=== PATIENT | female | born 1930 | race African-American/Black ===

== ENCOUNTER 2016-09-20 13:25 | Inpatient (IN) | payer MEDICARE ==
--- NOTE | ~2016-09-20 | DS ---
Discharge Summary [facility] [address] [place]. [address] NAME: LCARICE BRUCE : 28 STATUS : DIS IN PAT#: [id number] AGE: 86 ADM/REG DATE : 09/22/16 MR#: [id number] REPORT SERV DATE: 10/08/16 DICTATED BY: CORRY ALANIZ DATE: 10/07/16 REPORT STATUS : Draft TRANSCRIBED BY: RASHIDA DATE: 10/07/16 Data Collection from hospitalization DISCHARGE DIAGNOSES: 1. Acute on chronic hypercapnia. 2. Hypoxemic respiratory failure. 3. Untreated obstructive sleep apnea. 4. Restrictive lung disease/paralyzed left hemidiaphragm. 5. End-stage renal disease, on hemodialysis. 6. Vascular dementia. 7. Type 2 diabetes. 8. History of cerebrovascular accident with residual weakness. 9. Obesity hypoventilation syndrome. 10.Chronic obstructive pulmonary disease. CONSULTATIONS: 1. Karsten Saldana PA-C. 2. Luca Pond MD. 3. EVA Vital. PROCEDURES PERFORMED: 1. CT scan of the brain without contrast on 09/20/2016. 2. MRI of the brain without contrast on 09/22/2016. 3. Venous Doppler ultrasound of the left upper extremity on 09/27/2016. 4. Electroencephalogram on 09/23/2016. MEDICATIONS: DuoNeb inhaled solution as instructed, Eliquis 2.5 mg twice a day, Lumigan one drop daily as instructed, Tums one tablet daily, Sensipar 60 mg at bedtime, docusate sodium 100 mg daily, Cosopt one drop twice a day, Nexium 40 mg daily, Generlac 30 mL daily, Claritin 10 mg daily as needed, melatonin 3 mg at bedtime, Reglan 2.5 mg before meals and at bedtime, Provigil 100 mg daily, Nephrocaps one capsule daily, fish oil 2000 mg daily, MiraLAX powder one packet daily, Pravachol 80 mg at bedtime, Exelon 9.5 mg topically daily, Phoslyra 10 mL three times a day. CONDITION AT DISCHARGE: Stable. DISPOSITION: The patient was discharged home on a mechanical soft diet with activities as instructed. She would follow up with me as instructed. HOSPITAL COURSE: This is an 86-year-old female who is a [facility] participant. She was sent to the emergency room from dialysis. Her family reported that she had been lethargic over the past couple of days, sleeping more than usual and her speech has been a little slurred. She seemed to find it hard to find words to communicate. She had only about 45 minutes of dialysis on the day prior to this admission since they noticed the increased lethargy and sleepiness and sent her to the emergency room. She does have obstructive sleep apnea and is noncompliant with her CPAP. Her family reports that she had been more sleepy over the past few weeks, but not to the point that she had been over the past two days. She would usually wake up and respond when they would try to wake her up and she was able to hold the glass Discharge Summary [address] [place]. [address] NAME: CLARICE BRUCE : 29 STATUS : DIS IN PAT#: [id number] AGE: 86 ADM/REG DATE : 09/22/16 MR#: [id number] REPORT SERV DATE: 10/08/16 DICTATED BY: CORRY ALANIZ DATE: 10/07/16 REPORT STATUS : Draft TRANSCRIBED BY: RASHIDA DATE: 10/07/16 and drink from it, which she has not been able to do for the past two days. She also did not seem to be understanding very well when they would ask her to do things. She has no history of chest pain, nausea, vomiting, or abdominal pain. She has been having regular dialysis and had not missed any dialysis other than the one on the day prior to this admission. She was admitted to the hospital at this time for further evaluation and treatment. Upon admission, her troponin was 0.05. Chest x-ray revealed stable chest with severe right hilar enlargement, likely vascular with central venous congestion, bibasilar atelectasis, decreased lung volumes, and severe elevation of the left hemidiaphragm. A CT scan of the brain without contrast did not reveal any acute cardiovascular event. ABG was going to be checked. Magnesium supplementation was going to be provided. She was seen by Dr. Luca Pond regarding the encephalopathy. Her CT scan of the brain had shown generalized atrophy. She was noted to have encephalomalacia in the left parietal area concerning for previous stroke. She had complained of some recent abdominal discomfort, but did not appear to have persistent abdominal complaints. Serum ammonia, procalcitonin, vitamin B12, thiamine, and folate level were going to be checked as well as serum TSH and free T4. An MRI of the brain without contrast was requested. Ativan would be given prior to the MRI. On 09/22/2016, MRI of the brain without contrast was performed and this revealed moderate advanced diffuse cerebral involutional changes and moderate deep white matter chronic microvascular ischemic change. No acute CVA or acute intracranial pathology was seen. Chronic mucous retention cysts were seen at the floor of both maxillary sinuses. A swallow study was going to be performed. IV thiamine was started. EEG was requested. She had been seen by Deborah Cintron. She had 1+ edema. Creatinine level was 6.38. Hemodialysis therapy would be performed the following day. She was very sleepy likely secondary to the Ativan that she received prior to the MRI. Her MRI had been negative for acute stroke. On 09/23/2016, her T-max was 99. She had no new complaints. The patient has had a gradual decline over the past four to six months. Electroencephalogram was performed. The EEG was considered abnormal mildly secondary to the presence of generalized slowing, but otherwise, no electrographic seizure was captured. Clinical twitching was noted without corresponding electrographic changes concerning for possible myoclonus. No focal abnormality or seizure discharge was otherwise noted during the EEG evaluation. We were going to consider low-dose Keppra. Hemodialysis therapy was performed. On 09/24/2016, the patient's chest x-ray showed continued bilateral perihilar and basilar atelectasis. There was increased atelectasis versus consolidation in the right perihilar region. A dose of IV vancomycin was given. Her prognosis was guarded. Speech/Language pathology attempted to evaluate the patient, but she was too lethargic to safely consume anything by mouth. She was seen by Karsten Saldana regarding altered mental status and a patient with hypercapnic respiratory failure. Currently, she was essentially aphasic and unable to speak coherently. She had a wet cough. The patient's daughter said that she had worsening swallow function lately. Her oxygenation status at home had been stable. There had been no report of chest pain or significant past cardiac history. Creatinine level was 5.21. At this point in time, BiPAP therapy was going to be initiated for her hypercapnia. ABGs were going to be checked. If she were to require continuous BiPAP, she would be moved to the IMCU for closer monitoring. She is a limited code and did not want intubation. It was felt that she would likely qualify for noninvasive positive pressure ventilation at Discharge Summary [place] [id number] [place]. [address] NAME: CLARICE BRUCE : 29 STATUS : DIS IN PAT#: [id number] AGE: 86 ADM/REG DATE : 09/22/16 MR#: [id number] REPORT SERV DATE: 10/08/16 DICTATED BY: CORRY ALANIZ DATE: 10/07/16 REPORT STATUS : Draft TRANSCRIBED BY: RASHIDA DATE: 10/07/16 discharge. It was felt that she would likely need a modified barium swallow study once she was more alert. Nebulized medications would be provided with EzPAP. It was felt that she would likely qualify for noninvasive positive pressure ventilation at discharge. The next day, she had a few rhonchi in her lungs. The patient had been made a DNR/DNI on the chart. Lovenox was continued. On 09/26/2016, she was in no acute distress. She did seem more alert. Creatinine level was 5.23. Over the next couple of days, she was able to answer simple questions, was able to tolerate a pureed diet. Provigil was continued. She remained on oxygen. Keppra was stopped. Levothyroxine was going to be discontinued. She had some swelling in the left arm. Venous Doppler ultrasound of the left upper extremity was performed and was negative. Discharge planning was performed. Speech/Language pathology performed a swallow study. They recommended a mechanical soft diet with ground meat with gravy and thin liquids. She was evaluated by Physical Therapy. On 09/28/2016, hemodialysis therapy was performed. Discharge instructions were given. She was changed to oral Eliquis. Due to her improved and stable condition, she was discharged home with the above-stated instructions. Information collected by: Love Ruby I submit the above information as my discharge summary. KELBY/RASHIDA Corry Alaniz M.D. / [id number] CC: Vipin Rowe M.D. Jessica Craig, [facility] Luca Pond MD
--- NOTE | ~2016-09-20 | EEG ---
Electroencephalogram [place] [address] [place]. [address] NAME: CLARICE BRUCE : 28 STATUS : ADM IN PAT#: [id number] AGE: 86 ADM/REG DATE : 09/22/16 MR#: [id number] REPORT SERV DATE: 09/23/16 DICTATED BY: DATE: REPORT STATUS : Draft TRANSCRIBED BY: MODL DATE: 09/23/16 NEUROLOGY EEG REPORT CLINICAL INDICATION: Encephalopathy. DESCRIPTION: This EEG was performed using 10/20 electrode placement system. During the EEG study, symmetric background activity was noted with predominant occipital with mild generalized slowing, predominant occipital rhythm of 7-8 hertz. Photic stimulation was performed. No clear driving response was seen. Hyperventilation was not performed secondary to the patient's underlying medical condition. During the EEG study, the patient achieved drowsy state. The patient does have some twitching captured during the EEG study, without corresponding electrographic changes or electrographic seizures. No focal abnormalities, seizure activities were otherwise noted during the EEG study. INTERPRETATION: This EEG study obtained during awake and drowsy state may be considered mildly abnormal secondary to presence of generalized slowing, but otherwise no electrographic seizure was captured. Clinical twitching was noted without corresponding electrographic changes concerning for possible myoclonus. No focal abnormality or seizure discharge was otherwise noted during the EEG evaluation. Clinical correlation is recommended. [facility]/RASHIDA Luca Pond MD / [id number] CC: Vipin Rowe M.D.
--- NOTE | ~2016-09-20 | CN ---
Consultation Report [facility] [address] [place]. [address] NAME: CLARICE BRUCE : 28 STATUS : ADM Elly PAT#: [id number] AGE: 86 ADM/REG DATE : 09/20/16 MR#: [id number] REPORT SERV DATE: 09/21/16 DICTATED BY: DATE: REPORT STATUS : Draft TRANSCRIBED BY: MODL DATE: 09/21/16 NEUROLOGY CONSULTATION DATE OF CONSULTATION: 09/21/2016 REASON FOR CONSULT: Encephalopathy. HISTORY OF PRESENT ILLNESS: This is an 86-year-old female who presented to [facility] on 09/20/2016, secondary to encephalopathy with the patient noted to be more lethargic, sleeping, difficult to arouse, and at times will wake up. The patient's family reports the patient normally does have a tendency to fall asleep but not quite as bad when symptoms have been ongoing for the past [id number] days. The patient does have some complaints of abdominal discomfort roughly two to three days ago but does not appear to have persistent discomfort after provided with MiraLAX and senna at night and the patient had a bowel movement. The patient was noted to be awake at the time of evaluation, but was noted to be asleep when the patient's family arrived this morning. The patient's family otherwise denies any recent illness, fever, chills, nausea, vomiting, chest pain, or shortness of breath. The patient does have a history of previous stroke with residual right-sided hemiparesis, at baseline does not ambulate and the patient was noted to have difficulty talking at baseline although the patient's language difficulty as well as swallowing problem seems to be worse over the past four-to-six months according to family members. No other significant illness was reported. The patient was started on melatonin roughly 4 to 5 days ago but has only taken 2 days and night and has not been taking any melatonin recently. No other recent changes in medication was noted. The patient's family denies any recent similar events in the past. The patient does have difficulties with memories that appeared to be stable and was noted to have stable respiratory and home oxygen requirement over the past several years. PAST MEDICAL HISTORY: The patient's past medical history is significant for history of previous stroke with residual right-sided weakness as well as aphasia with the patient at baseline still able to communicate some with the family members but seems to have recent worsening of language difficulties. In addition, the patient was also noted to have recent worsening swallowing difficulties. The patient was also noted to have a history of dementia with history of end-stage renal disease, on hemodialysis. 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 The patient baseline is nonambulatory, wheelchair- bound secondary to stroke and weakness. 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 The patient also has had a history of recurrent small bowel obstruction in the past. SOCIAL HISTORY: The patient's family is involved in her care. No current tobacco, alcohol, or recreational drug usage. History of previous tobacco usage in the past. Consultation Report [place] [id number] [facility] [place]. [address] NAME: CLARICE BRUCE : 28 STATUS : ADM Elly PAT#: [id number] AGE: 86 ADM/REG DATE : 09/20/16 MR#: [id number] REPORT SERV DATE: 09/21/16 DICTATED BY: DATE: REPORT STATUS : Draft TRANSCRIBED BY: MODL DATE: 09/21/16 FAMILY HISTORY: Family history is significant for hypertension and diabetes otherwise. ALLERGIES: THE PATIENT WAS NOTED TO HAVE ALLERGY TO LISINOPRIL. SEDATING MEDICATION WAS AVOIDED AT BASELINE. THE PATIENT WAS NOT NOTED TO HAVE ANY BETA FRANCINE USAGE SECONDARY TO BASELINE BRADYCARDIA. REVIEW OF SYSTEMS: Unable to be obtained from the patient, but otherwise, negative according to family members. MEDICATIONS: The patient's home medication consist of Eliquis, Lumigan, calcium carbonate, Sensipar, docusate, Cosopt, Nexium, Neurontin, lactulose, Claritin, melatonin which the patient has not been taking, as well as Reglan, Nephro vitamins, fish oil, MiraLAX, pravastatin, and Exelon patch. PHYSICAL EXAMINATION: VITAL SIGNS: At the time of evaluation, the patient was noted to have vital signs with T- max of 98.1, heart rate of 32 to 67, respirations of 15 to 20, and blood pressure of 90 to 124 over 54 to 64. GENERAL: The patient is well developed, well nourished, in no acute distress. CARDIOVASCULAR: Regular rate and rhythm. No carotid bruits were otherwise auscultated. PULMONARY: Examination was clear to auscultation bilaterally. The patient was breathing through nasal cannula at the time of evaluation. NEUROLOGICAL EXAMINATION: The patient is alert although having difficulty answering orientation question; was noted to have verbal perseverance at the time of evaluation. Dysarthria was noted and not always answering questions appropriately. At the time of evaluation, is unable to answer orientation question and registration and recall was unable to be performed. The patient was noted to follow some simple commands but not consistently. Cranial nerves II to XII, pupils equal, round, and reactive to light with the patient noted to have horizontal eye movement. Scmed-tj-[id number] response was otherwise noted with the patient noted to have decreased nasolabial fold on the right, but otherwise, appeared to have perception of noxious stimulation in bilateral face. The patient does have retained coughing mechanism. At the time of evaluation, the patient was noted to have decreased hearing in bilateral ears. The patient does demonstrate decreased range of motion in the left upper extremity which according to the family has been chronic. The patient demonstrated roughly 2 to 3/5 left upper extremity supervisor byproducts strength as well as 1 to 2/5 right upper extremity strength with the patient demonstrated 1/5 bilateral lower extremity strength which according to family again has been chronic. The patient does demonstrate 3+ reflex in the right upper extremity and right lower extremity as well as 2+ reflex in the left upper and left lower extremity. The patient demonstrated upgoing toe on bilateral plantar reflexes. Cerebellar examination was unable to be evaluated secondary to limitation of motion in the bilateral upper extremities. Gait was not evaluated. At baseline, the patient is wheelchair bound. LABORATORY STUDIES: The patient's laboratory studies demonstrated sodium 137, potassium 4.4, chloride 103, bicarb 28, BUN of 39, creatinine of 5.35, glucose of 106, calcium of 8.6, with Consultation Report [address] [address] NAME: CLARICE BRUCE : 28 STATUS : ADM Elly PAT#: [id number] AGE: 86 ADM/REG DATE : 09/20/16 MR#: [id number] REPORT SERV DATE: 09/21/16 DICTATED BY: DATE: REPORT STATUS : Draft TRANSCRIBED BY: MODL DATE: 09/21/16 the patient noted to have white blood cell count of 5.9, hemoglobin of 11.8, hematocrit of 37.1, and platelet count of 153. CT scan of the brain, generalized atrophy was seen. The patient, in addition, was noted to have encephalomalacia in the left parietal area concerning for previous stroke. IMPRESSION: 1. Encephalopathy with waxing and waning mentation as well as level of consciousness with the patient at times more lethargic but now, at the time of evaluation, is awake. The patient was also noted to have progressive worsening language as well as swallowing difficulty for the past four-to-six months and recently appeared to be more lethargic over the past [id number]-se-egkyp days. The patient, in addition, has complained of recent abdominal discomfort and also does not appear to have persistent abdominal complaints. Concern for possible worsening baseline dementia versus stroke versus toxic metabolic etiology. We will check laboratory studies including serum ammonia, procalcitonin, vitamin B12, thiamine, and folate level as well as serum TSH and free T4 with morning labs. We will check MRI of the brain without contrast. As the patient was severely claustrophobic, we will provide the patient with very low dose of Ativan 0.25 mg IV x1, thirty minutes prior to MRI study, may repeat once if needed. We will also obtain swallow study given family is concerned about worsening swallowing difficulties for diagnostic study or recommendation pending the patient's MRI as well as laboratory study results. RECOMMENDATIONS: 1. MRI of the brain without contrast. 2. Ammonia, TSH, free T4, vitamin B12, folate, procalcitonin, thiamine level with morning labs. 3. Speech therapy for swallow study. 4. Ativan 0.25 mg IV x1, thirty minutes prior to MRI, may repeat once if needed. [facility]/MODL Luca Pond MD / [id number] CC: Vipin Rowe M.D.
--- NOTE | ~2016-09-20 | HP ---
History And Physical [place] [address] [facility] [place]. [address] NAME: CLARICE BRUCE : 29 STATUS : ADM Elly PAT#: [id number] AGE: 86 ADM/REG DATE : 09/20/16 MR#: [id number] REPORT SERV DATE: 09/21/16 DICTATED BY: WILLY HE DATE: 09/21/16 REPORT STATUS : Draft TRANSCRIBED BY: MODL DATE: 09/21/16 DATE OF ADMISSION: 09/20/2016 CHIEF COMPLAINT: Altered mental status, lethargy. HISTORY OF PRESENT ILLNESS: This is an 86-year-old female, who is a [facility] participant. She was sent to the emergency room from dialysis yesterday. Family reports that, she has been lethargic for the past two days, sleeping more than usual and her speech was a little slurred and she seemed to be finding it hard to find words to communicate. The patient had only about 45 minutes of dialysis yesterday since they noticed increased lethargy and sleepiness and sent her to the emergency room for further evaluation. She does have obstructive sleep apnea and is noncompliant with her CPAP. The family reports that she has been more sleepy for the last few weeks, but not to the point as she has been in the last two days. She would usually wake up and respond when they try to wake her up and was able to hold a glass and drink from it, which she has not been able to do for the past two days. She also does not seem to be understanding very well when they try to ask her to do things. She has no history of chest pain, nausea, vomiting, abdominal pain. No history of shortness of breath reported. No history of increased edema. She has been having regular dialysis and had not missed any dialysis other than the one yesterday. PAST MEDICAL HISTORY: She has a history of end-stage renal disease, on hemodialysis, vascular dementia, history of cerebrovascular disease with prior strokes and residual right- sided hemiparesis and aphasia. She also has a history of recurrent DVTs and pulmonary embolism, and is currently on anticoagulation for the same. 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 She has a history of hypercapnic respiratory arrest, for which she had been on a ventilator in the past. She also has obstructive sleep apnea and obesity hypoventilation syndrome. 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 She has also had multiple hospitalizations in the past for small bowel obstruction, which had been managed conservatively. FAMILY HISTORY: Noncontributory. SOCIAL HISTORY: The patient has a daughter who is very involved in her care, but lives with a friend who is presently in the room and able to give a detailed history. ALLERGIES: INCLUDES LISINOPRIL. WE ALSO AVOIDED GIVING HER SEDATING MEDICATIONS DUE TO HER DEVELOPING HYPOXIA AND ALSO BETA-BLOCKERS DUE TO BRADYCARDIA. MEDICATIONS: Current medication list, please see the medication reconciliation orders for details, but in brief, the patient is on Eliquis 5 mg twice a day, Lumigan eye drops, calcium carbonate, Sensipar tablet at bedtime, Colace, Cosopt eye drops, Nexium, gabapentin, lactulose, loratadine, melatonin which had been recently started, Reglan, Nephrocaps, fish oil, MiraLAX, pravastatin, Exelon patch, Phoslyra. REVIEW OF SYSTEMS: A 10-point review of systems was performed and was negative except as mentioned above. History And Physical [address] [address] NAME: CLARICE BRUCE : 29 STATUS : ADM Elly PAT#: [id number] AGE: 86 ADM/REG DATE : 09/20/16 MR#: [id number] REPORT SERV DATE: 09/21/16 DICTATED BY: WILLY HE DATE: 09/21/16 REPORT STATUS : Draft TRANSCRIBED BY: RASHIDA DATE: 09/21/16 PHYSICAL EXAMINATION: GENERAL: The patient has her eyes open at the time of exam, but is drowsy, and seems to not understand commands as well as she usually does. She is drowsy and is falling asleep during the conversation, but is arousable. She does not seem to be in any acute distress. HEENT: Normocephalic, atraumatic. No icterus noted. No pallor. NECK: Supple. There is no jugular venous distention. CHEST: Not tender to palpation. Breath sounds were decreased at the bases. Exam was restricted as the patient was not taking deep breaths, but I did not hear any wheezing or crackles. CARDIOVASCULAR: Regular rate and rhythm. 2/6 systolic ejection murmur present. ABDOMEN: Soft, nontender, nondistended. Active bowel sounds were present. NEURO: She is not as alert as she usually is, drowsy, but arousable. Not following commands very well. Strength is decreased in all her extremities and as per family, she is not moving her upper extremities as well as she usually does. The patient is left transfer at baseline and does not transfer independently and is usually either in the bed or in the wheelchair. SKIN: Did not reveal any breakdown. LABORATORIES: Sodium 137, potassium 4.4, chloride was 103, BUN 39, creatinine 5.34, glucose 106, calcium 8.6, magnesium was 1.5. Hemoglobin 5.9, hematocrit 37.1, platelets 153. INR was 1.5. Troponin 0.05. Chest x-ray reveals stable chest with severe right hilar enlargement likely vascular with central venous congestion, bibasilar atelectasis, decreased lung volumes, and severe elevation of the left hemidiaphragm. CT scan of the brain did not reveal any acute cardiovascular event. She did have some stable old CVAs. ASSESSMENT AND PLAN: 1. Altered mental status, increased lethargy, unclear cause, could be toxic metabolic encephalopathy versus cerebrovascular accident, which has not been picked up on the CT scan versus a respiratory cause versus generalized decline. We will get a Neurology consult and possibly an MRI. We will also check an ABG. The patient is going to get dialysis today and that should help. I have also discussed the fact that the patient seems to be declining gradually and she is sleeping much more than she used to in the past with the family and they seemed to understand. 2. End-stage renal disease. The patient is on hemodialysis Friday, Friday, Friday. We will take her for dialysis today. 3. Vascular dementia. History of cerebrovascular accident in the past with some residual right-sided hemiparesis. We will go ahead and get a neuro consult and possibly an MRI. 4. Obstructive sleep apnea and obesity hypoventilation syndrome. The patient is noncompliant with CPAP. She has been on oxygen last night as her O2 saturation had dropped. This may be contributing to the increased sleepiness and lethargy in the daytime. We will check an ABG. 5. Hypomagnesemia. We will replete magnesium and recheck later today. CODE STATUS: CPR with full treatment. History And Physical [facility] [address] [place]. [address] NAME: CLARICE BRUCE : 29 STATUS : ADM Elly PAT#: [id number] AGE: 86 ADM/REG DATE : 09/20/16 MR#: [id number] REPORT SERV DATE: 09/21/16 DICTATED BY: WILLY HE DATE: 09/21/16 REPORT STATUS : Draft TRANSCRIBED BY: RASHIDA DATE: 09/21/16 MB/RASHIDA Willy He M.D. / [id number] CC: Vipin Rowe M.D.
--- NOTE | ~2016-09-20 | CN ---
Consultation Report [facility] [address] [place]. [address] NAME: CLARICE BRUCE : 29 STATUS : ADM IN PAT#: [id number] AGE: 86 ADM/REG DATE : 09/22/16 MR#: [id number] REPORT SERV DATE: 09/24/16 DICTATED BY: KARSTEN REYNAGA DATE: 09/24/16 REPORT STATUS : Draft TRANSCRIBED BY: MODL DATE: 09/24/16 CONSULTATION DATE OF CONSULTATION: 09/24/2016 CHIEF COMPLAINT: Altered mental status in a patient with hypercapnic respiratory failure. HISTORY OF PRESENT ILLNESS: Mrs. Clarice Bruce is a chronically ill appearing 86-year- old, female with a past medical history significant for reported COPD, chronic respiratory failure, paralyzed left hemidiaphragm, obesity hypoventilation syndrome, obstructive sleep apnea without CPAP compliance, and DVT/PE, who presents to [facility]'s emergency room as a transfer from dialysis clinic. It should be noted that Mrs. Bruce was hospitalized as recently as 04/2016 when she was treated for respiratory failure. Mrs. Bruce is unable to provide an accurate history at this time and much of the following information was garnered from chart review as well as speaking with her daughter who is currently at bedside. She states that, Mrs. Bruce is never established with a packaging clerk, but has been seen remotely in the past by as well as Dr. Bustillos, of her Pulmonary Service. She is on chronic oxygen supplementation at 3 L. She is not on any pulmonary medications. It is felt that she is a never smoker. She does have a CPAP machine, but is known to pull this off in the middle of the night with some regularity. She is unable to quantify her exercise tolerance as she is essentially wheelchair/bed bound. Again Mrs. Bruce was hospitalized at [facility] in April of this year when she was seen by Dr. Bustillos for hypoxemic and hypercapnic respiratory failure. At that time, the recommendation was to provide her with BiPAP therapy as well as bronchodilators and oxygen supplementation. The patient did eventually improve and transitioned back home where she stays. More recently, she was noted to have increasing daytime somnolence. She was at dialysis on Friday, where she became more lethargic and there was an episode of "her eyes rolling back". This prompted her transfer to [facility]'s Emergency Room. Upon arrival, she was found to be normotensive and afebrile. She had 100% oxygenation on 2 L. Initial blood work revealed a white blood cell count of 5900. Her BUN was 39 and her creatinine was 5.35. She underwent a chest x-ray, which revealed a significantly elevated left hemidiaphragm, some vascular congestion was noted as well. A CT of the head was performed without any acute pathology. Eventually, the patient did have an arterial blood gas to assess her hypercapnia, this demonstrated pH of 7.21, a PaCO2 of 56, and a PaO2 of 87. Her bicarb was 22 at this time. She was later seen by Neurology for her encephalopathy. EEG was not very impressive. That being said, there was consideration given to start her on antiseizure medications. There was some question about the integrity of her swallow and as such, she was seen by Speech. At that time, it was felt that she was too lethargic to protect her airway. She has been n.p.o. since that time. For the aforementioned reasons, she has been referred to the Pulmonary Service for further Consultation Report [address] [address] NAME: CLARICE BRUCE : 29 STATUS : ADM IN [facility]#: [id number] AGE: 86 ADM/REG DATE : 09/22/16 MR#: [id number] REPORT SERV DATE: 09/24/16 DICTATED BY: KARSTEN REYNAGA DATE: 09/24/16 REPORT STATUS : Draft TRANSCRIBED BY: RASHIDA DATE: 09/24/16 assessment. Currently, the patient is essentially aphasic, unable to speak coherently. She is demonstrating a wet cough. The daughter at bedside does state that she has had worsening swallow function as of late. Her oxygenation status at home has been stable per her report. There has been no report of chest pain or significant past cardiac history. In regard to constitutional symptoms, she has had no nausea, vomiting, or fever. She has had no worsening lower extremity edema. PAST MEDICAL HISTORY: 1. End-stage renal disease, on dialysis Friday, Friday, and Friday. 2. Obstructive sleep apnea with questionable CPAP compliance. 3. Dementia. 4. CVA with residual-sided weakness. 5. Obesity hypoventilation syndrome. 6. Diabetes mellitus type 2. 7. History of DVT/PE. 8. COPD by report. 9. Chronic respiratory failure. 10.Paralyzed left hemidiaphragm. PAST SURGICAL HISTORY: Noncontributory. FAMILY HISTORY: The patient denies family history of lung disease. SOCIAL HISTORY: The patient is . She has children who are in good health. She previously worked as a caregiver and denies any known exposures to dust, silica, or asbestos. TOBACCO/ALCOHOL: As previously mentioned, the patient has been described as a never smoker. There is no recent alcohol or medication abuse by report. MEDICATIONS: Apixaban 5 mg, Sensipar 60 mg, esomeprazole 40 mg, gabapentin 100 mg, lactulose, loratadine 10 mg, melatonin 3 mg, Reglan 5 mg, pravastatin 80 mg, rivastigmine 9.5 mg patch. ALLERGIES: THE PATIENT HAS KNOWN ALLERGIES TO THE ANESTHETICS. REVIEW OF SYSTEMS: A complete review of systems was performed with pertinent positives and negatives contained within the body of the HPI. PHYSICAL EXAMINATION: VITAL SIGNS: Blood pressure is 103/56, heart rate 71, T-max 98.0, respiratory rate is 16, Consultation Report [address] [address] NAME: CLARICE BRUCE : 29 STATUS : ADM IN [facility]#: [id number] AGE: 86 ADM/REG DATE : 09/22/16 MR#: [id number] REPORT SERV DATE: 09/24/16 DICTATED BY: KARSTEN REYNAGA DATE: 09/24/16 REPORT STATUS : Draft TRANSCRIBED BY: MODL DATE: 09/24/16 SpO2 is 100% on 3 L. GENERAL: Mrs. Clarice Bruce is a chronically ill appearing 86-year-old female who is not currently responding to questions. That being said, she is not currently exhibiting any signs of acute distress. SKIN: Skin with appropriate texture and turgor. HEENT: Head, skull is normocephalic, atraumatic. Eyes, sclerae are anicteric. Nose, sinuses without tenderness upon palpation. Throat, the patient will not open mouth at this time. NECK: Neck is supple. THORAX/LUNGS: Thorax is symmetric with equal chest rise. Coarse rhonchi throughout. CARDIOVASCULAR: Regular rate and rhythm. ABDOMEN: Abdomen is soft. PERIPHERAL VASCULAR: No edema. MUSCULOSKELETAL: No evidence of erythema, deformity, or crepitus. NEUROLOGIC: Unable to assess. PSYCHIATRIC: Unable to assess. ACCESSORY DATA: Reveals a BUN of 26, creatinine is 5.21. ABG, pH 7.21, PaCO2 of 56, PaO2 of 87, bicarb of 22.0. White blood cell count is 4300, hemoglobin and hematocrit are 11.1 and 34.9. Bedside swallow evaluation demonstrated the patient is too lethargic to participate at this time. CT of the head was negative for new stroke. Chest x-ray reveals an elevated left hemidiaphragm as well as atelectatic changes. IMPRESSION: 1. Acute on chronic hypoxemic, hypercapnic respiratory failure. 2. Dysphagia. 3. Obstructive sleep apnea with periodic CPAP compliance. 4. Obesity hypoventilation syndrome. 5. 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 6. Possible chronic obstructive pulmonary disease. 7. History of deep venous thrombosis/pulmonary embolism. 8. Chronic kidney disease on dialysis Friday, Friday, and Friday. 9. Cerebrovascular accident with residual weakness and aphasia. PLAN: 1. At this time, we will initiate BiPAP therapy for her hypercapnia. We will obtain an ABG in 1-2 hours to assure that there is improvement in her hypercapnia. If she were to require continuous BiPAP, we would move her to the IMCU for closer monitoring. Of note, the patient is a limited code and does not want intubation. The patient would likely qualify for noninvasive positive pressure ventilation at discharge. We will surveil this moving forward. 2. In regard to the patient's dysphagia, she would likely need a modified barium swallow study once she is more alert. In regard to her possible COPD, we will provide her with nebulized medications and provide them with the EzPAP to improve her atelectatic Consultation Report [place] [id number] [place]. [address] NAME: CLARICE BRUCE : 29 STATUS : ADM IN [facility]#: [id number] AGE: 86 ADM/REG DATE : 09/22/16 MR#: [id number] REPORT SERV DATE: 09/24/16 DICTATED BY: KARSTEN REYNAGA DATE: 09/24/16 REPORT STATUS : Draft TRANSCRIBED BY: MODL DATE: 09/24/16 changes on chest x-ray. The aforementioned impression and plan has been discussed with Dr. Cam, who will follow further recommendations. We thank you for this consult and look forward to participating in the care of Mrs. Clarice Bruce. SRI/RASHIDA Karsten Reynaga PA-C / [id number] CC: Vipin Rowe M.D.
[~2016-09-20 13:25] MED LIST: ACET500CAP PO; ACETSUP650 PR; AKWA TEARS OP; AKWA TEARS15 ML OP; ALAVERT10 MG PO; APRES50 PO; AURALGAN OT; BION TEARS; BISR PR; C1 PO; C2 PO; C5 PO; CADUET5 MG/10 MG PO; CALCIUM ACETATE; CALCIUM ACETATE PO; CATAPRES3 TOP; CATPATCH1 TOP; CIP5 PO; CLARIT10 PO; CONSTULOSE PO; COSOPT OPH; COUMADIN6 MG PO; COUMADIN7.5 MG PO; DORZOLAMIDE2 % OP; DORZOLAMIDE2 % OPH; DSS PO; ELIQUIS 2.5 MG2.5 MG PO; EMLA TOP; ENULOSE PO; EXELON PATCH; EXELON9.5T PO; EXELON9.5T TOP; FERROUS SULF325 M1 PO; FISH-EPA1000 MG PO; GLUTOSE GEL; GLUTOSE TOP; IMDUR30 PO; IRON325 MG PO; ISOSORB DIN30 MG PO; L40 PO; L80 PO; LACT30UDL PO; LANTUS FOR SC; LANTUS SC; LANTUSCART SC; LIDAMANTLE3 % TOP; LIDODERM T; LIQUACEL PO; LORT7 PO; LORTAB 5 PO; LUMIGAN OPH; LUMIGAN2.5 ML OP; LUMIGAN2.5 ML OPH; MAALOX PO; MELA3 PO; MIRALAXPKT OR; MIRALAXPKT PO; MYLUD PO; NEPHRO PO; NEPHRO-VITE PO; NEUR100 PO; NEUR300 PO; NEXIUM20 M1 PO; NEXIUM40 PO; OXYGEN; PHOSLO PO; PHOSLYRA; PHOSLYRA PO; PHOSLYRA PO/LIQ; PR12.5R PR; PRAVACHOL80 MG PO; PRILO PO; REG5 PO; RENA-VITE PO; RENAL MULTIVITAMIN PO; ROBITUSS11 OR; SENSIPAR30 M1 OR; SENSIPAR30 M1 PO; SENSIPAR30 MG PO; SENSIPAR60 MG PO; SENTAB PO; SORBITOL; SPIRO25 PO; T PO; TUMSROLL PO; TYLENOL ARTH650 MG PO; ULTRAM50 PO; VICODINTAB PO; VITAMIN C100 MG PO; VOLTAREN1 % TOP; WARFARIN; XALAT OPH; ZOCOR20 PO; ZOFRAN4 PO; ZYRTEC ALLGY10 MG PO; [UNRECOGNIZED DRUG - OTHER] OT; [UNRECOGNIZED DRUG - REMARK]; [UNRECOGNIZED DRUG - REMARK] PO
[2016-09-20 15:41] LABS: BASOPHILS 0.2 %; BASOPHILS ABSOLUTE 0.01 10/3/uL (0.0-0.16); EOSINOPHILS 1.2 %; EOSINOPHILS ABSOLUTE 0.07 10/3/uL (0.0-0.53); HEMATOCRIT 37.1 % (36.0-48.0); HEMOGLOBIN 11.8 g/dL (12.0-16.0); IMMATURE GRANULOCYTES 0.2 %; IMMATURE GRANULOCYTES ABSOLUTE 0.01 10/3/uL (0.0-0.11); LYMPHOCYTES 21.7 %; LYMPHOCYTES ABSOLUTE 1.29 10/3/uL (0.67-4.30); MEAN CORPUS HGB CONC 31.8 g/dL (32.0-36.0); MEAN CORPUSCULAR HEMOGLOB 30.6 pg (26.0-34.0); MEAN CORPUSCULAR VOLUME 96.1 fL (80-100); MONOCYTES 9.6 %; MONOCYTES ABSOLUTE 0.57 10/3/uL (0.21-1.20); NEUTROPHILS 67.1 %; NEUTROPHILS ABSOLUTE 3.99 10/3/uL (2.02-8.40); PLATELET COUNT 153 10/3/uL (150-400); RED CELL COUNT 3.86 10/6/uL (4.0-5.6)
[2016-09-20 15:42] LABS: ER CBC TAT 0 Hrs 07 Mins; MANUAL DIFF NO %; WHITE BLOOD CELLS 5.9 10/3/uL (4.5-10.5)
[2016-09-20 15:51] LABS: INTERNATIONAL NORMAL RATI 1.5 UNITS (-); PROTIME (NOT ORD) 17.5 SEC (12.0-14.5)
[2016-09-20 16:35] LABS: POTASSIUM, SERUM 4.4 MMOL/L (3.5-5.3); SGPT(ALT) 25 U/L (5-65); SODIUM, SERUM 137 MMOL/L (135-148)
[2016-09-20 16:36] LABS: CHEST PAIN PROFILE TAT 0 Hrs 20 Mins; SGOT(AST) 29 U/L (5-40); TROPONIN I 0.05 NG/ML (<0.05)
[2016-09-20 17:11] LABS: A/G RATIO 0.8 (0.7-1.9); ALBUMIN 3.1 G/DL (3.5-5.0); ALKALINE PHOSPHATASE 102 U/L (45-117); BUN (BLOOD UREA NITROGEN) 39 MG/DL (6-23); CO2 (CARBON DIOXIDE) 28 MMOL/L (24-34); CREATININE 5.35 MG/DL (0.55-1.02); GFR AFRICAN AMERICAN 8 ML/MIN (>=60); GFR NON AFRICAN AMERICAN 7 ML/MIN (>=60); GLOBULIN 3.8 G/DL (2.5-4.1); GLUCOSE, SERUM 106 MG/DL (60-99); TOTAL BILIRUBIN 0.4 MG/DL (0-1.2); TOTAL PROTEIN 6.9 G/DL (6.0-8.5)
[2016-09-20 17:12] LABS: CALCIUM, SERUM 8.6 MG/DL (8.5-10.4)
[2016-09-20 17:19] LABS: CHLORIDE, SERUM 103 MMOL/L (96-112)
[2016-09-20] MEDS ORDERED: CLARIT10 PO (19:14)
[2016-09-20] MEDS ORDERED: D.O.S.100 MG PO (19:14)
[2016-09-20] MEDS ORDERED: COSOPT OPH (19:16)
[2016-09-20] MEDS ORDERED: ELIQUIS 5 MG TAB5 MG PO (19:16)
[2016-09-20] MEDS ORDERED: FISH-EPA1000 MG PO (19:17)
[2016-09-20] MEDS ORDERED: GENERLAC PO (19:18)
[2016-09-20] MEDS ORDERED: LUMIGAN2.5 ML OPH (19:19)
[2016-09-20] MEDS ORDERED: MIRALAX POWDER1 PKT PO (19:20)
[2016-09-20] MEDS ORDERED: NEPHRO PO (19:21)
[2016-09-20] MEDS ORDERED: NEUR100 PO (19:22)
[2016-09-20] MEDS ORDERED: NEXIUM40 PO (19:23)
[2016-09-20] MEDS ORDERED: PHOSLYRA PO (19:24)
[2016-09-20] MEDS ORDERED: PRAVACHOL80 MG PO (19:26)
[2016-09-20] MEDS ORDERED: SENSIPAR60 MG PO (19:28)
[2016-09-20] MEDS ORDERED: REG5 PO (19:28)
[2016-09-20] MEDS ORDERED: TUMSROLL PO (19:29)
[2016-09-20] MEDS ORDERED: EXELON9.5T TOP (19:31)
[2016-09-20] MEDS ORDERED: MELA3 PO (19:31)
[2016-09-21 16:52] LABS: BE (BASE EXCESS) -6.6 MEQ/L (0 +/- 2.5); CARBOXYHEMOGLOBIN 1.1 % (0-3); HCO3 (ACTUAL BICARBONATE) 22.2 MEQ/L (23-27); INSTRUMENT SERIAL # 8083; METHEMOGLOBIN 0.1 % (0-3); O2 CONTENT 16.5 VOL% (18-24); PCO2 (CO2 TENSION) 60 MMHG (35-45); PO2 (O2 TENSION) 109 MMHG (79-93); pH 7.19 (7.37-7.43)
[2016-09-21 16:53] LABS: SAMPLE Arterial
[2016-09-21 18:45] LABS: BASOPHILS 0.3 %; BASOPHILS ABSOLUTE 0.01 10/3/uL (0.0-0.16); EOSINOPHILS 3.6 %; EOSINOPHILS ABSOLUTE 0.13 10/3/uL (0.0-0.53); HEMOGLOBIN 11.2 g/dL (12.0-16.0); IMMATURE GRANULOCYTES 0.5 %; IMMATURE GRANULOCYTES ABSOLUTE 0.02 10/3/uL (0.0-0.11); LYMPHOCYTES 31.7 %; LYMPHOCYTES ABSOLUTE 1.16 10/3/uL (0.67-4.30); MEAN CORPUSCULAR HEMOGLOB 30.7 pg (26.0-34.0); MEAN CORPUSCULAR VOLUME 95.9 fL (80-100); MEAN PLATELET VOLUME 10.6 fL (9.2-13.0); MONOCYTES 6.8 %; MONOCYTES ABSOLUTE 0.25 10/3/uL (0.21-1.20); NEUTROPHILS 57.1 %; NEUTROPHILS ABSOLUTE 2.09 10/3/uL (2.02-8.40); PLATELET COUNT 147 10/3/uL (150-400); RBC DISTRIBUTION WIDTH 14.6 % (12.0-16.0); RED CELL COUNT 3.65 10/6/uL (4.0-5.6); WHITE BLOOD CELLS 3.7 10/3/uL (4.5-10.5)
[2016-09-21 18:51] LABS: MANUAL DIFF NO %
[2016-09-21 18:58] LABS: ALBUMIN 2.9 G/DL (3.5-5.0); CALCIUM, SERUM 8.7 MG/DL (8.5-10.4); CHLORIDE, SERUM 100 MMOL/L (96-112); CO2 (CARBON DIOXIDE) 28 MMOL/L (24-34); POTASSIUM, SERUM 4.6 MMOL/L (3.5-5.3); SODIUM, SERUM 134 MMOL/L (135-148)
[2016-09-21 18:59] LABS: BUN (BLOOD UREA NITROGEN) 47 MG/DL (6-23); CREATININE 6.38 MG/DL (0.55-1.02); GFR AFRICAN AMERICAN 6 ML/MIN (>=60); GFR NON AFRICAN AMERICAN 5 ML/MIN (>=60); GLUCOSE, SERUM 147 MG/DL (60-99); PHOSPHORUS, SERUM 4.4 MG/DL (2.5-4.5)
[2016-09-22 09:07] LABS: BASOPHILS 0.4 %; BASOPHILS ABSOLUTE 0.02 10/3/uL (0.0-0.16); EOSINOPHILS 3.4 %; EOSINOPHILS ABSOLUTE 0.16 10/3/uL (0.0-0.53); HEMATOCRIT 35.3 % (36.0-48.0); HEMOGLOBIN 11.3 g/dL (12.0-16.0); IMMATURE GRANULOCYTES 0.4 %; IMMATURE GRANULOCYTES ABSOLUTE 0.02 10/3/uL (0.0-0.11); LYMPHOCYTES 19.7 %; LYMPHOCYTES ABSOLUTE 0.94 10/3/uL (0.67-4.30); MANUAL DIFF NO %; MEAN CORPUSCULAR HEMOGLOB 30.5 pg (26.0-34.0); MEAN CORPUSCULAR VOLUME 95.1 fL (80-100); MEAN PLATELET VOLUME 10.6 fL (9.2-13.0); MONOCYTES 7.6 %; MONOCYTES ABSOLUTE 0.36 10/3/uL (0.21-1.20); NEUTROPHILS 68.5 %; NEUTROPHILS ABSOLUTE 3.26 10/3/uL (2.02-8.40); PLATELET COUNT 153 10/3/uL (150-400); RBC DISTRIBUTION WIDTH 14.6 % (12.0-16.0); RED CELL COUNT 3.71 10/6/uL (4.0-5.6); WHITE BLOOD CELLS 4.8 10/3/uL (4.5-10.5)
[2016-09-22 09:51] LABS: PROCALCITONIN 0.17 ng/mL (<0.5)
[2016-09-22 10:19] LABS: A/G RATIO 0.9 (0.7-1.9); ALBUMIN 2.9 G/DL (3.5-5.0); ALKALINE PHOSPHATASE 79 U/L (45-117); BUN (BLOOD UREA NITROGEN) 34 MG/DL (6-23); CALCIUM, SERUM 8.9 MG/DL (8.5-10.4); CHLORIDE, SERUM 102 MMOL/L (96-112); CO2 (CARBON DIOXIDE) 26 MMOL/L (24-34); CREATININE 5.52 MG/DL (0.55-1.02); FREE T4 0.71 NG/DL (0.76-1.46); GFR AFRICAN AMERICAN 7 ML/MIN (>=60); GFR NON AFRICAN AMERICAN 6 ML/MIN (>=60); GLOBULIN 3.3 G/DL (2.5-4.1); GLUCOSE, SERUM 132 MG/DL (60-99); POTASSIUM, SERUM 4.3 MMOL/L (3.5-5.3); SGOT(AST) 22 U/L (5-40); SGPT(ALT) 20 U/L (5-65); SODIUM, SERUM 136 MMOL/L (135-148); TOTAL BILIRUBIN 0.3 MG/DL (0-1.2); TOTAL PROTEIN 6.2 G/DL (6.0-8.5)
[2016-09-22 11:18] LABS: FOLATE 49.1 NG/ML (>5.2)
[2016-09-23 08:26] LABS: ALLENS TEST Pos; BE (BASE EXCESS) -7.9 MEQ/L (0 +/- 2.5); CARBOXYHEMOGLOBIN 2.1 % (0-3); DEVICE NC; HCO3 (ACTUAL BICARBONATE) 20.6 MEQ/L (23-27); HEMOBLOGIN CONTENT 12.1 G/DL (12-16); INSTRUMENT SERIAL # 8087; METHEMOGLOBIN 0.1 % (0-3); O2 CONTENT 16.5 VOL% (18-24); OPERATOR ID 14335; PCO2 (CO2 TENSION) 56 MMHG (35-45); PO2 (O2 TENSION) 108 MMHG (79-93); SAMPLE Arterial; pH 7.19 (7.37-7.43)
[2016-09-23 13:52] LABS: BASOPHILS 0.2 %; BASOPHILS ABSOLUTE 0.01 10/3/uL (0.0-0.16); EOSINOPHILS 2.7 %; EOSINOPHILS ABSOLUTE 0.11 10/3/uL (0.0-0.53); HEMATOCRIT 34.9 % (36.0-48.0); HEMOGLOBIN 11.3 g/dL (12.0-16.0); IMMATURE GRANULOCYTES 0.2 %; IMMATURE GRANULOCYTES ABSOLUTE 0.01 10/3/uL (0.0-0.11); LYMPHOCYTES ABSOLUTE 0.85 10/3/uL (0.67-4.30); MANUAL DIFF NO %; MEAN CORPUS HGB CONC 32.4 g/dL (32.0-36.0); MEAN CORPUSCULAR VOLUME 95.6 fL (80-100); MONOCYTES 7.2 %; MONOCYTES ABSOLUTE 0.29 10/3/uL (0.21-1.20); NEUTROPHILS 68.7 %; NEUTROPHILS ABSOLUTE 2.77 10/3/uL (2.02-8.40); PLATELET COUNT 142 10/3/uL (150-400); RBC DISTRIBUTION WIDTH 14.3 % (12.0-16.0); RED CELL COUNT 3.65 10/6/uL (4.0-5.6)
[2016-09-23 14:04] LABS: ALBUMIN 2.8 G/DL (3.5-5.0); CALCIUM, SERUM 9.2 MG/DL (8.5-10.4); CHLORIDE, SERUM 102 MMOL/L (96-112); CO2 (CARBON DIOXIDE) 29 MMOL/L (24-34); GFR AFRICAN AMERICAN 6 ML/MIN (>=60); GFR NON AFRICAN AMERICAN 5 ML/MIN (>=60); GLUCOSE, SERUM 113 MG/DL (60-99); PHOSPHORUS, SERUM 4.2 MG/DL (2.5-4.5); POTASSIUM, SERUM 4.6 MMOL/L (3.5-5.3); SODIUM, SERUM 135 MMOL/L (135-148)
[2016-09-23 14:05] LABS: BUN (BLOOD UREA NITROGEN) 42 MG/DL (6-23); CREATININE 6.62 MG/DL (0.55-1.02)
[2016-09-24 05:26] LABS: ALBUMIN 3.1 G/DL (3.5-5.0); CHLORIDE, SERUM 104 MMOL/L (96-112); CO2 (CARBON DIOXIDE) 26 MMOL/L (24-34); POTASSIUM, SERUM 4.3 MMOL/L (3.5-5.3); SODIUM, SERUM 136 MMOL/L (135-148)
[2016-09-24 05:28] LABS: BUN (BLOOD UREA NITROGEN) 26 MG/DL (6-23); CREATININE 5.21 MG/DL (0.55-1.02); GFR AFRICAN AMERICAN 8 ML/MIN (>=60); GFR NON AFRICAN AMERICAN 7 ML/MIN (>=60); GLUCOSE, SERUM 72 MG/DL (60-99)
[2016-09-24 05:29] LABS: PHOSPHORUS, SERUM 3.1 MG/DL (2.5-4.5)
[2016-09-24 06:22] LABS: HEMATOCRIT 34.9 % (36.0-48.0); HEMOGLOBIN 11.1 g/dL (12.0-16.0); MANUAL DIFF YES %; MEAN CORPUS HGB CONC 31.8 g/dL (32.0-36.0); MEAN CORPUSCULAR HEMOGLOB 30.9 pg (26.0-34.0); MEAN CORPUSCULAR VOLUME 97.2 fL (80-100); MEAN PLATELET VOLUME 10.6 fL (9.2-13.0); PLATELET COUNT 103 10/3/uL (150-400); RBC DISTRIBUTION WIDTH 14.6 % (12.0-16.0); RED CELL COUNT 3.59 10/6/uL (4.0-5.6); WHITE BLOOD CELLS 4.3 10/3/uL (4.5-10.5)
[2016-09-24 06:44] LABS: BASOPHILS 1 %; BASOPHILS ABSOLUTE (CALC) 0.04 10/3/uL (0.0-0.16); EOSINOPHILS 4 %; EOSINOPHILS ABSOLUTE (CALC) 0.17 10/3/uL (0.0-0.53); LYMPHOCYTES 14 %; MONOCYTES 12 %; MONOCYTES ABSOLUTE (CALC) 0.52 10/3/uL (0.21-1.20); NEUTROPHILS ABSOLUTE (CALC) 2.97 10/3/uL (2.02-8.40); PLATELET ESTIMATE DEC (ADEQUATE); SEGMENTED NEUTROPHIL (0) 69 %; TOTAL NUCLEATED CELLS 100
[2016-09-24 06:45] LABS: TARGET CELLS FEW (3-10/OIF) (0-1/OIF)
[2016-09-24 10:55] LABS: BE (BASE EXCESS) -6.3 MEQ/L (0 +/- 2.5); CARBOXYHEMOGLOBIN 1.6 % (0-3); DEVICE NC; HEMOBLOGIN CONTENT 11.5 G/DL (12-16); INSTRUMENT SERIAL # 8083; METHEMOGLOBIN 0.1 % (0-3); O2 CONTENT 15.4 VOL% (18-24); PCO2 (CO2 TENSION) 56 MMHG (35-45); PO2 (O2 TENSION) 87 MMHG (79-93); SAMPLE Arterial; pH 7.21 (7.37-7.43)
[2016-09-24 16:02] LABS: PROCALCITONIN 0.16 ng/mL (<0.5)
[2016-09-24 16:07] LABS: BIPAP 15/5 cm.H2O; CARBOXYHEMOGLOBIN 1.6 % (0-3); HCO3 (ACTUAL BICARBONATE) 26.9 MEQ/L (23-27); HEMOBLOGIN CONTENT 12.2 G/DL (12-16); INSTRUMENT SERIAL # 8083; METHEMOGLOBIN 0.1 % (0-3); O2 CONTENT 16.7 VOL% (18-24); PCO2 (CO2 TENSION) 75 MMHG (35-45); PO2 (O2 TENSION) 105 MMHG (79-93); SAMPLE Arterial; pH 7.17 (7.37-7.43)
[2016-09-25 06:14] LABS: BASOPHILS 0.3 %; BASOPHILS ABSOLUTE 0.01 10/3/uL (0.0-0.16); EOSINOPHILS 2.8 %; EOSINOPHILS ABSOLUTE 0.09 10/3/uL (0.0-0.53); HEMATOCRIT 34.6 % (36.0-48.0); IMMATURE GRANULOCYTES 0.3 %; IMMATURE GRANULOCYTES ABSOLUTE 0.01 10/3/uL (0.0-0.11); LYMPHOCYTES 29.5 %; LYMPHOCYTES ABSOLUTE 0.94 10/3/uL (0.67-4.30); MANUAL DIFF NO %; MEAN CORPUS HGB CONC 31.8 g/dL (32.0-36.0); MEAN CORPUSCULAR HEMOGLOB 30.6 pg (26.0-34.0); MEAN CORPUSCULAR VOLUME 96.1 fL (80-100); MEAN PLATELET VOLUME 10.2 fL (9.2-13.0); MONOCYTES 8.8 %; MONOCYTES ABSOLUTE 0.28 10/3/uL (0.21-1.20); NEUTROPHILS 58.3 %; NEUTROPHILS ABSOLUTE 1.86 10/3/uL (2.02-8.40); PLATELET COUNT 141 10/3/uL (150-400); RBC DISTRIBUTION WIDTH 14.3 % (12.0-16.0); WHITE BLOOD CELLS 3.2 10/3/uL (4.5-10.5)
[2016-09-25 06:29] LABS: CALCIUM, SERUM 9.3 MG/DL (8.5-10.4); CHLORIDE, SERUM 107 MMOL/L (96-112); CO2 (CARBON DIOXIDE) 26 MMOL/L (24-34); POTASSIUM, SERUM 4.6 MMOL/L (3.5-5.3); SODIUM, SERUM 139 MMOL/L (135-148)
[2016-09-25 06:32] LABS: BUN (BLOOD UREA NITROGEN) 32 MG/DL (6-23); CREATININE 6.26 MG/DL (0.55-1.02); GFR AFRICAN AMERICAN 6 ML/MIN (>=60); GFR NON AFRICAN AMERICAN 6 ML/MIN (>=60); GLUCOSE, SERUM 57 MG/DL (60-99)
[2016-09-25 09:20] LABS: BE (BASE EXCESS) -7.1 MEQ/L (0 +/- 2.5); CARBOXYHEMOGLOBIN 1.6 % (0-3); HCO3 (ACTUAL BICARBONATE) 20.5 MEQ/L (23-27); HEMOBLOGIN CONTENT 11.4 G/DL (12-16); INSTRUMENT SERIAL # 8083; METHEMOGLOBIN 0.1 % (0-3); O2 CONTENT 14.5 VOL% (18-24); PCO2 (CO2 TENSION) 50 MMHG (35-45); PO2 (O2 TENSION) 65 MMHG (79-93); SAMPLE Arterial; pH 7.23 (7.37-7.43)
[2016-09-25 12:43] LABS: THYROID PEROXIDASE AUTO AB 1.6 IU/mL (0.0-9.0)
[2016-09-25 13:06] LABS: THYROGLOBULIN AUTO ANTIBODY <0.9 IU/mL (0.0-4.0)
[2016-09-25 17:39] LABS: THIAMINE 85.4 nmol/L (()); THIAMINE MONOPHOSPHATE 11.6 nmol/L (())
[2016-09-26 07:57] LABS: BUN (BLOOD UREA NITROGEN) 24 MG/DL (6-23); CALCIUM, SERUM 8.7 MG/DL (8.5-10.4); CHLORIDE, SERUM 105 MMOL/L (96-112); CO2 (CARBON DIOXIDE) 26 MMOL/L (24-34); CREATININE 5.23 MG/DL (0.55-1.02); GFR AFRICAN AMERICAN 8 ML/MIN (>=60); GFR NON AFRICAN AMERICAN 7 ML/MIN (>=60); GLUCOSE, SERUM 53 MG/DL (60-99); POTASSIUM, SERUM 4.1 MMOL/L (3.5-5.3); SODIUM, SERUM 140 MMOL/L (135-148)
[2016-09-27 07:36] LABS: BASOPHILS 0.3 %; BASOPHILS ABSOLUTE 0.01 10/3/uL (0.0-0.16); EOSINOPHILS 4.7 %; EOSINOPHILS ABSOLUTE 0.14 10/3/uL (0.0-0.53); HEMATOCRIT 33.6 % (36.0-48.0); HEMOGLOBIN 10.8 g/dL (12.0-16.0); IMMATURE GRANULOCYTES 0.3 %; IMMATURE GRANULOCYTES ABSOLUTE 0.01 10/3/uL (0.0-0.11); LYMPHOCYTES 29.1 %; LYMPHOCYTES ABSOLUTE 0.86 10/3/uL (0.67-4.30); MEAN CORPUS HGB CONC 32.1 g/dL (32.0-36.0); MEAN CORPUSCULAR HEMOGLOB 30.5 pg (26.0-34.0); MEAN CORPUSCULAR VOLUME 94.9 fL (80-100); MEAN PLATELET VOLUME 10.5 fL (9.2-13.0); MONOCYTES 10.5 %; MONOCYTES ABSOLUTE 0.31 10/3/uL (0.21-1.20); NEUTROPHILS 55.1 %; NEUTROPHILS ABSOLUTE 1.63 10/3/uL (2.02-8.40); PLATELET COUNT 135 10/3/uL (150-400); RBC DISTRIBUTION WIDTH 13.9 % (12.0-16.0); RED CELL COUNT 3.54 10/6/uL (4.0-5.6)
[2016-09-27 07:37] LABS: MANUAL DIFF NO %
[2016-09-27 07:48] LABS: ALBUMIN 2.9 G/DL (3.5-5.0); CALCIUM, SERUM 8.8 MG/DL (8.5-10.4); CHLORIDE, SERUM 106 MMOL/L (96-112); CO2 (CARBON DIOXIDE) 28 MMOL/L (24-34); POTASSIUM, SERUM 4.4 MMOL/L (3.5-5.3); SODIUM, SERUM 138 MMOL/L (135-148)
[2016-09-27 07:50] LABS: BUN (BLOOD UREA NITROGEN) 33 MG/DL (6-23); CREATININE 6.08 MG/DL (0.55-1.02); GFR AFRICAN AMERICAN 7 ML/MIN (>=60); GFR NON AFRICAN AMERICAN 6 ML/MIN (>=60); GLUCOSE, SERUM 70 MG/DL (60-99); PHOSPHORUS, SERUM 4.2 MG/DL (2.5-4.5)
[2016-09-28] MEDS ORDERED: PROVIGIL1 PO (11:57)
[2016-09-28] MEDS ORDERED: DUONEB INH ×2 (11:59)
[2016-09-28] MEDS ORDERED: ELIQUIS 2.5 MG2.5 MG PO (12:00)
[2016-10-30] MEDS ORDERED: TRUSOPT2 % OPH (09:55)
[2016-10-30] MEDS ORDERED: REG5 PO (09:55)
[2016-10-30] MEDS ORDERED: XALAT OPH (09:56)
[2016-10-30] MEDS ORDERED: PHOSLYRA PO (09:58)
[2016-10-30] MEDS ORDERED: CLARIT10 PO (09:58)
[2016-10-30] MEDS ORDERED: TUMSROLL PO (09:58)
[2016-10-30] MEDS ORDERED: FISH-EPA1000 MG PO (09:59)
[2016-10-30] MEDS ORDERED: SENTAB PO (10:00)
[2016-10-30] MEDS ORDERED: NEPHRO-VITE PO (10:00)
[2016-10-30] MEDS ORDERED: NEXIUM20 M1 PO (10:00)
[2016-10-30] MEDS ORDERED: PROVIGIL1 PO (10:00)
[2016-10-30] MEDS ORDERED: PRAVACHOL80 MG PO (10:01)
[2016-10-30] MEDS ORDERED: ELIQUIS 2.5 MG2.5 MG PO (10:01)
[2016-10-30] MEDS ORDERED: SENSIPAR60 MG PO (10:02)
[2016-10-30] MEDS ORDERED: DSS PO (10:02)
[2016-10-30] MEDS ORDERED: NEUR100 PO (10:03)
[2016-10-30] MEDS ORDERED: EXELON9.5T TOP (10:04)
[2016-10-30] MEDS ORDERED: VOLTAREN1 % TOP (10:19)
[2016-10-30] MEDS ORDERED: DUONEB INH (10:19)
== END 2016-09-28 15:19 | disposition hospice, home (50) | DRG 682 ==
LOC: ER 13:25 → 4EA 19:28
PROVIDERS: Internal Medicine Geriatric Medicine; Internal Medicine Nephrology; Physician Assistant; Psychiatry & Neurology Neurology
DX: N18.6 End stage renal disease (principal); J96.21 Acute and chronic respiratory failure with hypoxia; G93.41 Metabolic encephalopathy; J96.22 Acute and chronic respiratory failure with hypercapnia; E66.2 Morbid (severe) obesity with alveolar hypoventilation; F01.50 Vascular dementia, unspecified severity, without behavioral disturbance, psychotic disturbance, mood disturbance, and anxiety; E83.42 Hypomagnesemia; Z86.73 Personal history of transient ischemic attack (TIA), and cerebral infarction without residual deficits; Z99.2 Dependence on renal dialysis
CPT/HCPCS: 36600; 70450; 70551; 71010; 71020; 80048; 80053; 80069; 81001; 82140; 82607; 82746; 82805; 82962; 83605; 83690; 83735; 84145; 84425; 84439; 84443; 84484; 85025; 85520; 85610; 85652; 85730; 86140; 86376; 86800; 87040; 92610-GN; 93005; 93971; 94640; 94660; 95816; 97161-GP; 99285; A9270-GY; C9113; G0257; G8978-CL-GP; G8979-CL-GP; G8980-CL-GP; J1953; J2765; J3370; J3411; J3475; P9047